=== PATIENT | female | born 1975 | race Caucasian/White ===

== ENCOUNTER 2020-08-27 10:20 | Observation (INO) ==
[2020-08-27] MEDS ORDERED: Aspirin 325 MG TABLET PO ONE (10:51)
[2020-08-27 11:02] LABS: Bilirubin,Urine Negative (Negative); Blood,Urine Negative (Negative); Clarity,Urine Clear (Clear); Color,Urine Colorless (Yellow); Glucose,Urine (UA) Normal (Normal); Ketones,Urine Negative (Negative); Leukocyte Esterase,Urine Negative (Negative); Nitrite,Urine Negative (Negative); Protein,Urine Negative (Neg-Trace); Specific Gravity,Urine 1.006 (1.010-1.025); Urobilinogen,Urine Normal (Normal)
[2020-08-27 11:03] LABS: Basophils # 0.1 K/mcL (0.0-0.2); Basophils % 0.8 %; Eosinophils # 0.1 K/mcL (0.0-0.6); Eosinophils % 1.4 %; Hematocrit 41.4 % (35.3-44.9); Immature Granulocytes % 0.4 % (0-4); Lymphocytes # 1.8 K/mcL (0.6-4.6); Lymphocytes % 22.7 %; Mean Corpuscular HGB Conc 31.4 g/dL (31.6-35.5); Mean Corpuscular Hemoglobin 27.5 pg (28.0-33.3); Mean Corpuscular Volume 87.5 fL (83.0-100.0); Monocytes # 0.7 K/mcL (0.0-1.3); Neutrophils # 5.2 K/mcL (1.6-8.9); Platelet Count 317 K/mcL (140-400); Red Blood Count 4.73 M/mcL (3.82-4.97); Red Cell Distribution Width 14.7 % (11.5-14.5); Segmented Neutrophils % 65.7 %
[2020-08-27] MEDS ORDERED: *HR* Labetalol 20 MG/4 ML SYRINGE IVP STA ×2 (11:23→12:28)
[2020-08-27] MEDS ORDERED: 0.9 % Sodium Chloride 500 ML IVC STA (11:23)
[2020-08-27] MEDS ORDERED: Metoclopramide 10 MG/2 ML VIAL IVP ONE (11:23)
[2020-08-27 12:12] LABS: BUN/Creatinine Ratio 14 (6-26); Blood Urea Nitrogen 9 mg/dL (6-20); Calcium 8.6 mg/dL (8.6-10.3); Carbon Dioxide 23 mEq/L (23-29); Chloride 104 mEq/L (98-107); Glucose 109 mg/dL (70-105); Osmolality,Calculated 283 (280-300); Sodium 137 mEq/L (136-145); Troponin I < 0.03 ng/mL (< 0.04); eGFR For African Americans > 60 (> 60); eGFR For Non-African Americans > 60 (> 60)
[2020-08-27 13:12] LABS: Adenovirus Not Detected (Not Detect); Bordetella Pertussis Not Detected (Not Detect); Chlamydophila pneumoniae Not Detected (Not Detect); Coronavirus 229E Not Detected (Not Detect); Coronavirus HKU1 Not Detected (Not Detect); Coronavirus NL63 Not Detected (Not Detect); Coronavirus OC43 Not Detected (Not Detect); Human Metapneumovirus Not Detected (Not Detect); Human Rhinovirus/Enterovirus Not Detected (Not Detect); Influenza A Subtype 2009 H1 Not Detected (Not Detect); Influenza B Not Detected (Not Detect); Mycoplasma pneumoniae Not Detected (Not Detect); Parainfluenza Virus 1 Not Detected (Not Detect); Parainfluenza Virus 2 Not Detected (Not Detect); Parainfluenza Virus 3 Not Detected (Not Detect); Parainfluenza Virus 4 Not Detected (Not Detect); Respiratory Syncytial Virus Not Detected (Not Detect); SARS-CoV-2 Not Detected (Not Detect)
[2020-08-27] MEDS ORDERED: Mag Hydrox/Al Hydrox/Simeth 30 ML UDC PO PRN (14:58)
[2020-08-27] MEDS ORDERED: Naloxone 0.4 MG/ML INJ IVP PRN (14:58)
[2020-08-27] MEDS ORDERED: Ondansetron ODT 4 MG TAB.RAPDIS SL PRN (14:58)
[2020-08-27] MEDS ORDERED: MOM Conc 10 ML UD.LIQ PO PRN (14:58)
[2020-08-27] MEDS ORDERED: Melatonin 3 MG TABLET PO PRN (14:58)
[2020-08-27] MEDS ORDERED: Perflutren Lipid Microsphere 1.3 ML in 0.9 % Sodium Chloride 8.7 ML IVP PRN (16:49)
[2020-08-27] MEDS: Acetaminophen 325 MG TABLET PO PRN (16:52)
[2020-08-27] MEDS: Nicotine 2 MG GUM BC PRN ×2 (16:53→19:35)
[2020-08-27] MEDS ORDERED: *HR* Heparin 5,000 UNIT/ML VIAL IVP PRN ×2 (18:53)
[2020-08-27] MEDS ORDERED: *HR* Heparin 5,000 UNIT/ML VIAL IVP ONE (18:53)
[2020-08-27] MEDS ORDERED: Heparin 25,000UNIT/250ML 1/2NS 25,000 UNIT/250 ML IV.SOLN IVC SCH (19:00)
[2020-08-27 20:01] LABS: Hematocrit 37.4 % (35.3-44.9); Hemoglobin 11.8 g/dL (11.5-15.4); Mean Corpuscular HGB Conc 31.6 g/dL (31.6-35.5); Mean Corpuscular Hemoglobin 27.2 pg (28.0-33.3); Mean Corpuscular Volume 86.2 fL (83.0-100.0); Mean Platelet Volume 9.5 fL (9.4-12.4); Platelet Count 274 K/mcL (140-400); Red Blood Count 4.34 M/mcL (3.82-4.97); Red Cell Distribution Width 14.5 % (11.5-14.5); White Blood Count 7.8 K/mcL (4.3-11.1)
[2020-08-27 20:14] LABS: Heparin anti-factor XA UFH < 0.04 IU/mL (0.30-0.70); Prothrombin Time 11.7 Seconds (9.4-12.1)
[2020-08-27] MEDS ORDERED: *HR* Heparin 5,000 UNIT/ML VIAL SQ SCH (22:00)
[2020-08-28] MEDS: Acetaminophen 325 MG TABLET PO PRN (03:08)
[2020-08-28 03:28] LABS: Hematocrit 35.4 % (35.3-44.9); Hemoglobin 11.6 g/dL (11.5-15.4); Mean Corpuscular HGB Conc 32.8 g/dL (31.6-35.5); Mean Corpuscular Volume 85.5 fL (83.0-100.0); Platelet Count 269 K/mcL (140-400); Red Blood Count 4.14 M/mcL (3.82-4.97); Red Cell Distribution Width 14.7 % (11.5-14.5); White Blood Count 7.5 K/mcL (4.3-11.1)
[2020-08-28 03:37] LABS: BUN/Creatinine Ratio 20 (6-26); Blood Urea Nitrogen 12 mg/dL (6-20); Calcium 8.5 mg/dL (8.6-10.3); Carbon Dioxide 23 mEq/L (23-29); Chloride 107 mEq/L (98-107); Chol/HDL Ratio 4.5 (0-4.9); Cholesterol 179 mg/dL (< 200); Glucose 112 mg/dL (70-105); HDL Cholesterol 40 mg/dL (40-59); LDL Cholesterol,Calculated 99 mg/dL (< 100); Magnesium 1.7 mg/dL (1.6-2.6); Osmolality,Calculated 279 (280-300); Potassium 3.9 mEq/L (3.5-5.1); Sodium 134 mEq/L (136-145); Triglycerides 201 mg/dL (< 150); eGFR For African Americans > 60 (> 60); eGFR For Non-African Americans > 60 (> 60)
[2020-08-28] MEDS ORDERED: *HR* HYDROcodone/Acet 5/325 mg TABLET PO ONE (10:04)
[2020-08-28] MEDS: niCARdipine 20 MG/200 ML MLS IVC SCH (10:38)
[2020-08-28] MEDS: Aspirin Enteric Coated 81 MG Tablet PO SCH (12:25)
[2020-08-28] MEDS: lisinopriL 10 MG TABLET PO SCH (12:25)
[2020-08-28] MEDS: amLODIPine 5 MG TABLET PO SCH (14:15)
[2020-08-28] MEDS: carvediloL 6.25 MG TABLET PO SCH (16:03)
[2020-08-28] MEDS: Nicotine 2 MG GUM BC PRN ×2 (16:03→19:41)
[2020-08-29 01:17] LABS: BUN/Creatinine Ratio 19 (6-26); Blood Urea Nitrogen 12 mg/dL (6-20); Calcium 8.8 mg/dL (8.6-10.3); Carbon Dioxide 22 mEq/L (23-29); Chloride 106 mEq/L (98-107); Glucose 128 mg/dL (70-105); Osmolality,Calculated 281 (280-300); Potassium 3.5 mEq/L (3.5-5.1); Sodium 135 mEq/L (136-145); eGFR For African Americans > 60 (> 60); eGFR For Non-African Americans > 60 (> 60)
[2020-08-29 01:24] LABS: Troponin I 0.06 ng/mL (< 0.04)
[2020-08-29 06:44] VITALS: BP 136/75
[2020-08-29] MEDS: Aspirin Enteric Coated 81 MG Tablet PO SCH (07:18)
[2020-08-29] MEDS: amLODIPine 5 MG TABLET PO SCH (07:18)
[2020-08-29] MEDS: carvediloL 6.25 MG TABLET PO SCH (07:18)
[2020-08-29] MEDS: lisinopriL 10 MG TABLET PO SCH (07:18)
[2020-09-01 18:58] LABS: Metanephrine, Plasma 0.16 nmol/L (0.00-0.49)
== END 2020-08-29 11:21 | disposition home or self-care (01) ==
LOC: 2NNU 10:20 → EMEROOARM 10:20 → SUATTDRO 15:49 → 2NNU 16:33
PROVIDERS: ADMIT Internal Medicine; ATTEND Internal Medicine